=== PATIENT | female | born 1960 | race Caucasian/White ===

== ENCOUNTER 2017-01-01 21:34 | Emergency (ER) | payer OTHER ==
[~2017-01-01] VITALS: Ht 165.1 cm; Wt 50.5 kg
[~2017-01-01 21:34] MED LIST: ADVAIR 250/501 DISK IH; ALPRAZOLAM1 MG PO; AZITHROMYCIN250 MG PO; BACLOFEN10 MG PO; CLEOCIN300 MG PO; DIVALPROEX SOD500 MG PO; DULERA 200 MCG/13 GM IH; EPIPEN ADU0.3 MG/0.3 IM; EYE DROP TEARS15 ML BOTH EYES; FLEXERIL10 MG PO; FUROSEMIDE20 MG PO; KEPPRA500 MG PO; LAMICTAL25 MG PO; LAMOTRIGINE100 MG PO; LEVETIRACETAM500 MG PO; MAXALT10 MG PO; MEGACE 40 MG40 MG/ML PO; MEGESTROL800 MG/20 PO; MELOXICAM15 MG PO; MILLIPRED5 MG PO; MOBIC7.5 MG PO; MOTRIN600 MG PO; NAPROSYN500 MG PO; NITROSTAT0.4 MG SL; OMEPRAZOLE20 MG PO; OXAYDO5 MG PO; OXYCODONE HCL5 MG PO; PREDNISONE10 M1 PO; PREDNISONE20 MG PO; PRILOSEC20 MG PO; PROAIR HFA8.5 GM IH; PROMETHAZINE HC25 M1 PO; PROMETHAZINE12.5 M1 PO; PROVENTIL,2.5 MG/3 M IH; REGLAN10 MG PO; ROXICODONE5 MG PO; TIZANIDINE HCL2 M1 PO; VITAMIN D400 UNI1 PO; XANAX0.5 MG PO; ZITHROMAX Z-PA250 MG PO; ZITHROMAX250 MG PO; ZOLPIDEM TARTRA10 MG PO
[2017-01-01 21:55] LABS: HEMATOCRIT 41.1 % (36.0-46.0); MCH 30.6 PG (29.0-34.0); MCHC 33.1 G/DL (30.0-36.0); MCV 92.4 FL (83-99); MEAN PLAT.VOLUME 11.6 uM^3 (9.5-12.4); PLATELET COUNT 181 K/uL (156-360); RBC DIS.WIDTH-CV 13.2 % (11.8-14.6); RBC DIS.WIDTH-SD 45.1 % (39-53); RED BLOOD COUNT 4.45 M/uL (3.80-5.20); WHITE BLOOD COUNT 6.1 K/uL (4.1-10.2)
[2017-01-01 22:30] LABS: CHLORIDE 107 mEq/L (99-109); POTASSIUM 3.9 mEq/L (3.7-5.4); SODIUM 141 mEq/L (136-147)
[2017-01-01 22:32] LABS: GLUCOSE 90 mg/dL (70-99)
[2017-01-01 22:33] LABS: ANION GAP 8 MEQ/L (2-14)
[2017-01-01 22:36] LABS: GFR ESTIMATE (CALCULATED) > 59 mL/min/; UREA NITROGEN (BUN) 9 mg/dL (9-23)
[2017-01-01 22:39] LABS: TROP-I INTERPRETATION NEGATIVE; TROPONIN-I < 0.01 ng/mL (0.0-0.30)
[2017-01-02] MEDS ORDERED: PROAIR HFA8.5 GM IH (01:01)
[2017-01-02] MEDS ORDERED: HYCODAN SYRUP480 ML PO (01:01)
[2017-01-02] MEDS ORDERED: PREDNISONE20 MG PO (01:01)
[2017-01-02 01:48] VITALS: BP 131/63
== END 2017-01-02 01:48 | disposition home or self-care (01) ==
LOC: EME 21:34
DX: J44.0 Chronic obstructive pulmonary disease with (acute) lower respiratory infection (principal); J20.9 Acute bronchitis, unspecified; R11.10 Vomiting, unspecified; J06.9 Acute upper respiratory infection, unspecified; S29.011A Strain of muscle and tendon of front wall of thorax, initial encounter; I25.2 Old myocardial infarction; J45.909 Unspecified asthma, uncomplicated; K21.9 Gastro-esophageal reflux disease without esophagitis; F17.200 Nicotine dependence, unspecified, uncomplicated; Z85.028 Personal history of other malignant neoplasm of stomach
CPT/HCPCS: 71020; 80048; 84484; 85027; 87651 90; 93005; 94640; 99281; 99284; J7512

== ENCOUNTER 2017-02-27 21:34 | Emergency (ER) | payer OTHER ==
[~2017-02-27] VITALS: Ht 165.1 cm; Wt 51.8 kg
[~2017-02-27 21:34] MED LIST changes: +HYCODAN SYRUP480 ML PO
[2017-02-27 23:13] LABS: HEMATOCRIT 43.1 % (36.0-46.0); MCH 30.4 PG (29.0-34.0); MCHC 31.8 G/DL (30.0-36.0); MCV 95.8 FL (83-99); MEAN PLAT.VOLUME 11.8 uM^3 (9.5-12.4); PLATELET COUNT 218 K/uL (156-360); RBC DIS.WIDTH-CV 13.7 % (11.8-14.6); RBC DIS.WIDTH-SD 48.7 % (39-53); WHITE BLOOD COUNT 7.2 K/uL (4.1-10.2)
[2017-02-27 23:25] LABS: CHLORIDE 112 mEq/L (99-109); POTASSIUM 3.6 mEq/L (3.7-5.4); SODIUM 141 mEq/L (136-147)
[2017-02-27 23:26] LABS: GLUCOSE 89 mg/dL (70-99)
[2017-02-27 23:28] LABS: ANION GAP 9 MEQ/L (2-14)
[2017-02-27 23:30] LABS: GFR ESTIMATE (CALCULATED) > 59 mL/min/
[2017-02-27 23:31] LABS: UREA NITROGEN (BUN) 9 mg/dL (9-23)
[2017-02-27 23:39] LABS: TROP-I INTERPRETATION NEGATIVE; TROPONIN-I < 0.01 ng/mL (0.0-0.30)
[2017-02-28] MEDS ORDERED: NAPROSYN500 MG PO (00:15)
[2017-02-28 00:19] VITALS: BP 130/66
== END 2017-02-28 00:25 | disposition home or self-care (01) ==
LOC: EME 21:34
PROVIDERS: Emergency Medicine
DX: M54.42 Lumbago with sciatica, left side (principal); R60.0 Localized edema; J44.9 Chronic obstructive pulmonary disease, unspecified; J45.909 Unspecified asthma, uncomplicated; Z90.710 Acquired absence of both cervix and uterus; Z85.028 Personal history of other malignant neoplasm of stomach; F17.200 Nicotine dependence, unspecified, uncomplicated
CPT/HCPCS: 80048; 84484; 85027; 93971; 99281; 99284

== ENCOUNTER 2017-06-17 19:33 | Observation (INO) | payer OTHER ==
[~2017-06-17] VITALS: Ht 162.6 cm; Wt 49.6 kg
[2017-06-17 20:07] LABS: MCH 30.1 PG (29.0-34.0); MCHC 33.1 G/DL (30.0-36.0); MCV 90.9 FL (83-99); MEAN PLAT.VOLUME 11.5 uM^3 (9.5-12.4); PLATELET COUNT 283 K/uL (156-360); RBC DIS.WIDTH-CV 12.8 % (11.8-14.6); RBC DIS.WIDTH-SD 42.5 % (39-53); RED BLOOD COUNT 4.95 M/uL (3.80-5.20); WHITE BLOOD COUNT 8.8 K/uL (4.1-10.2)
[2017-06-17 20:16] LABS: CHLORIDE 102 mEq/L (99-109); POTASSIUM 3.9 mEq/L (3.7-5.4); SODIUM 139 mEq/L (136-147)
[2017-06-17 20:17] LABS: GLUCOSE 121 mg/dL (70-99)
[2017-06-17 20:19] LABS: ANION GAP 9 MEQ/L (2-14)
[2017-06-17 20:21] LABS: GFR ESTIMATE (CALCULATED) > 59 mL/min/
[2017-06-17 20:22] LABS: UREA NITROGEN (BUN) 11 mg/dL (9-23)
[2017-06-17 20:27] LABS: TROP-I INTERPRETATION NEGATIVE; TROPONIN-I < 0.01 ng/mL (0.0-0.30)
[2017-06-17 21:30] LABS: D-DIMER ELISA < 150.00 ng/mLDDU (<230)
[2017-06-18] MEDS ORDERED: VENTOLIN HFA18 GM IH (01:04)
[2017-06-18] MEDS ORDERED: OXYCODONE HCL15 MG PO (01:19)
[2017-06-18] MEDS ORDERED: MARIJUANA PO (01:21)
[2017-06-18 03:35] VITALS: BP 120/57
[2017-06-18 05:10] LABS: TROP-I INTERPRETATION NEGATIVE; TROPONIN-I < 0.01 ng/mL (0.0-0.30)
[2017-06-18 07:17] VITALS: BP 109/65
[2017-06-18 09:32] LABS: TROP-I INTERPRETATION NEGATIVE; TROPONIN-I < 0.01 ng/mL (0.0-0.30)
[2017-06-18 11:53] VITALS: BP 117/74
[2017-06-18] MEDS ORDERED: NICOTINE PATCH1 EAC2 TD (11:57)
== END 2017-06-18 13:53 | disposition home or self-care (01) ==
LOC: EME 19:33 → EDOF 06-18 01:44 → ENRESERV 06-18 01:46 → 5WEST 06-18 03:31
PROVIDERS: Emergency Medicine; Hospitalist
DX: R07.9 Chest pain, unspecified (principal); J44.9 Chronic obstructive pulmonary disease, unspecified; M54.9 Dorsalgia, unspecified; G89.4 Chronic pain syndrome; I25.2 Old myocardial infarction; F41.9 Anxiety disorder, unspecified; Z79.891 Long term (current) use of opiate analgesic; F12.90 Cannabis use, unspecified, uncomplicated; F17.200 Nicotine dependence, unspecified, uncomplicated; Z88.0 Allergy status to penicillin; Z91.030 Bee allergy status; Z88.8 Allergy status to other drugs, medicaments and biological substances; Z91.040 Latex allergy status
CPT/HCPCS: 71020; 80048; 84484; 85027; 85379; 93005; 93306; 99281; 99285; G0378; J2765

== ENCOUNTER 2017-07-17 05:07 | Emergency (ER) | payer OTHER ==
[~2017-07-17] VITALS: Ht 165.1 cm; Wt 48.1 kg
[~2017-07-17 05:07] MED LIST changes: +MARIJUANA PO; +NICOTINE PATCH1 EAC2 TD; +OXYCODONE HCL15 MG PO; +VENTOLIN HFA18 GM IH
[2017-07-17 05:39] LABS: EOSINOPHIL (%) 0.4 % (0-5); EOSINOPHIL COUNT 0.1 K/uL (0-0.3); HEMATOCRIT 41.7 % (36.0-46.0); IMMATURE GRANULOCYTE (%) 0.2 % (0.0-0.7); INSTRUMENT ABS NEUTROPHIL CT 8.7 K/uL; LYMPHOCYTE COUNT 1.7 K/uL (1.0-2.8); MCH 30.8 PG (29.0-34.0); MCHC 33.8 G/DL (30.0-36.0); MEAN PLAT.VOLUME 11.1 uM^3 (9.5-12.4); NEUTROPHIL (%) 75.6 % (45-76); NEUTROPHIL COUNT 8.7 K/uL (1.8-6.4); PLATELET COUNT 275 K/uL (156-360); RBC DIS.WIDTH-CV 12.6 % (11.8-14.6); RBC DIS.WIDTH-SD 41.8 % (39-53); RED BLOOD COUNT 4.58 M/uL (3.80-5.20); WHITE BLOOD COUNT 11.5 K/uL (4.1-10.2)
[2017-07-17 05:47] LABS: CHLORIDE 105 mEq/L (99-109); POTASSIUM 3.9 mEq/L (3.7-5.4); SODIUM 140 mEq/L (136-147)
[2017-07-17 05:49] LABS: GLUCOSE 102 mg/dL (70-99)
[2017-07-17 05:50] LABS: ANION GAP 10 MEQ/L (2-14)
[2017-07-17 05:51] LABS: TOTAL BILIRUBIN 0.2 mg/dL (0.0-1.0)
[2017-07-17 05:53] LABS: ALKALINE PHOSPHATASE 94 IU/L (3-129); GFR ESTIMATE (CALCULATED) > 59 mL/min/
[2017-07-17 05:54] LABS: UREA NITROGEN (BUN) 8 mg/dL (9-23)
[2017-07-17 05:56] LABS: LIPASE 21 U/L (1.0-51.0)
[2017-07-17 06:00] LABS: TROP-I INTERPRETATION NEGATIVE; TROPONIN-I < 0.01 ng/mL (0.0-0.30)
[2017-07-17] MEDS ORDERED: ZITHROMAX250 MG PO (07:03)
[2017-07-17] MEDS ORDERED: LIDOCAINE700 MG TP (07:07)
[2017-07-17 09:22] LABS: TROP-I INTERPRETATION NEGATIVE; TROPONIN-I < 0.01 ng/mL (0.0-0.30)
[2017-07-17 10:29] VITALS: BP 127/67
== END 2017-07-17 10:31 | disposition home or self-care (01) ==
LOC: EME 05:07
PROVIDERS: Emergency Medicine
DX: R07.89 Other chest pain (principal); J44.9 Chronic obstructive pulmonary disease, unspecified; F17.200 Nicotine dependence, unspecified, uncomplicated; F12.90 Cannabis use, unspecified, uncomplicated; I25.2 Old myocardial infarction; K21.9 Gastro-esophageal reflux disease without esophagitis; Z85.028 Personal history of other malignant neoplasm of stomach; R56.9 Unspecified convulsions; Z86.73 Personal history of transient ischemic attack (TIA), and cerebral infarction without residual deficits; F41.9 Anxiety disorder, unspecified; Z91.040 Latex allergy status; Z88.1 Allergy status to other antibiotic agents; Z88.5 Allergy status to narcotic agent; Z88.6 Allergy status to analgesic agent; Z88.0 Allergy status to penicillin; Z87.19 Personal history of other diseases of the digestive system; Z87.442 Personal history of urinary calculi
CPT/HCPCS: 71020; 80053; 81003; 83690; 84484; 85025; 85379; 93005; 99281; 99285; J1100; J1885; J7030

== ENCOUNTER → 2017-08-20 | Outpatient (CLI) | payer OTHER ==
[~2017-08-20] MED LIST changes: +AMBIEN10 MG PO; +BREO ELLIPTA 21 EACH IH; +LAMOTRIGINE200 MG PO; +LIDOCAINE700 MG TP; +XANAX0.25 MG PO
== END | disposition home or self-care (01) ==
LOC: OPR 08:35 → EDSTATUS 09:00 → OPR 09:00
DX: R91.1 Solitary pulmonary nodule (principal); E27.9 Disorder of adrenal gland, unspecified; Z53.09 Procedure and treatment not carried out because of other contraindication
CPT/HCPCS: 77012

== ENCOUNTER 2017-08-30 16:46 | Inpatient (IN) | payer OTHER ==
[~2017-08-30] VITALS: Ht 165.1 cm; Wt 46.3 kg
[2017-08-30 17:49] LABS: HEMATOCRIT 43.7 % (36.0-46.0); MCH 30.6 PG (29.0-34.0); MCHC 34.3 G/DL (30.0-36.0); MCV 89.2 FL (83-99); RBC DIS.WIDTH-CV 13.2 % (11.8-14.6); RBC DIS.WIDTH-SD 43.2 % (39-53); WHITE BLOOD COUNT 8.6 K/uL (4.1-10.2)
[2017-08-30 17:51] LABS: PLATELET COUNT 189 K/uL (156-360)
[2017-08-30 17:57] LABS: ALBUMIN 4.1 g/dL (3.2-4.8); CHLORIDE 99 mEq/L (99-109); POTASSIUM 3.6 mEq/L (3.7-5.4)
[2017-08-30 17:58] LABS: SODIUM 137 mEq/L (136-147)
[2017-08-30 17:59] LABS: CHLORIDE 99 mEq/L (99-109); POTASSIUM 3.6 mEq/L (3.7-5.4); SODIUM 139 mEq/L (136-147)
[2017-08-30 18:00] LABS: GLUCOSE 89 mg/dL (70-99)
[2017-08-30 18:01] LABS: GLUCOSE 89 mg/dL (70-99)
[2017-08-30 18:02] LABS: TOTAL BILIRUBIN 0.8 mg/dL (0.0-1.0)
[2017-08-30 18:03] LABS: ALKALINE PHOSPHATASE 85 IU/L (3-129); CREATININE 0.6 mg/dL (0.6-1.3); GFR ESTIMATE (CALCULATED) > 59 mL/min/
[2017-08-30 18:05] LABS: AST (GOT) 28 IU/L (2-34); CREATININE 0.6 mg/dL (0.6-1.3); GFR ESTIMATE (CALCULATED) > 59 mL/min/; UREA NITROGEN (BUN) 11 mg/dL (9-23)
[2017-08-30 18:06] LABS: ALT (GPT) 32 IU/L (3-49); UREA NITROGEN (BUN) 11 mg/dL (9-23)
[2017-08-30 18:14] LABS: QUANTITATIVE HCG < 4.0 MIU/ML
[2017-08-30 21:12] LABS: LIPASE 21 U/L (1.0-51.0)
[2017-08-30] MEDS ORDERED: OXYCODONE HCL20 M1 PO (23:42)
[2017-08-30] MEDS ORDERED: ALPRAZOLAM0.25 M2 PO (23:43)
[2017-08-30] MEDS ORDERED: RIZATRIPTAN10 M1 PO (23:44)
[2017-08-30] MEDS ORDERED: PROMETHAZINE HC25 M1 PO (23:45)
[2017-08-31 00:40] LABS: APPEARANCE SL.HAZY ((CLEAR)); BILIRUBIN NEGATIVE; BLOOD NEGATIVE; COLOR AMBER ((YELLOW)); GLUCOSE (STRIP) NEGATIVE; KETONES 20; LEUKOCYTES NEGATIVE; NITRITE NEGATIVE; PROTEIN (STRIP) 30; SPECIFIC GRAVITY 1.027 (1.000-1.030); UROBILINOGEN 0.2 MG/DL (0.2-1.0)
[2017-08-31 01:02] LABS: BACTERIA 1+ /HPF; EPITHELIAL CELLS RARE /HPF; MUCUS 4+ /LPF; UCUL ADDED? NO; WHITE BLOOD CELLS 0-5 /HPF (0-5)
[2017-08-31 03:45] VITALS: BP 123/60
[2017-08-31 08:19] VITALS: BP 102/51
[2017-08-31 11:39] VITALS: BP 105/58
[2017-08-31 15:41] VITALS: BP 99/50
[2017-08-31 19:00] VITALS: BP 109/67
[2017-09-01 00:39] VITALS: BP 112/53
[2017-09-01 06:18] LABS: CHLORIDE 104 MEQ/L (99-109); CREATININE 0.5 MG/DL (0.6-1.3); GFR ESTIMATE (CALCULATED) > 59 mL/min/; POTASSIUM 3.6 MEQ/L (3.7-5.4); SODIUM 138 MEQ/L (136-147); UREA NITROGEN (BUN) 10 mg/dL (9-23)
[2017-09-01 06:22] LABS: HEMATOCRIT 36.6 % (36.0-46.0); MCH 30.1 PG (29.0-34.0); MCHC 33.6 G/DL (30.0-36.0); MCV 89.7 FL (83-99); PLATELET COUNT 165 K/uL (156-360); RBC DIS.WIDTH-CV 13.1 % (11.8-14.6); RBC DIS.WIDTH-SD 43.1 % (39-53); RED BLOOD COUNT 4.08 M/uL (3.80-5.20); WHITE BLOOD COUNT 3.6 K/uL (4.1-10.2)
[2017-09-01 06:23] LABS: HEMOGLOBIN 12.3 G/DL (11.9-15.5)
[2017-09-01 06:32] LABS: GLUCOSE 189 mg/dL (70-99)
[2017-09-01 06:46] LABS: BASOPHIL (%) 0 % (0-1); EOSINOPHIL (%) 0 % (0-5); IMMATURE GRANULOCYTE (%) 0.3 % (0.0-0.7); LYMPHOCYTE (%) 27.3 % (15-42); MONOCYTE (%) 6.1 % (3-12); MONOCYTE COUNT 0.2 K/uL (0-0.8); NEUTROPHIL (%) 66.3 % (45-76); NEUTROPHIL COUNT 2.4 K/uL (1.8-6.4)
[2017-09-01 07:21] VITALS: BP 90/57
[2017-09-01 11:25] VITALS: BP 100/57
[2017-09-01 15:45] VITALS: BP 100/55
[2017-09-01 19:00] VITALS: BP 101/58
[2017-09-01 23:25] VITALS: BP 105/56
[2017-09-02 07:48] VITALS: BP 134/67
[2017-09-02 07:55] VITALS: BP 106/55
[2017-09-02 11:45] VITALS: BP 110/59
[2017-09-02 15:18] VITALS: BP 119/57
[2017-09-02 19:30] VITALS: BP 120/57
[2017-09-02 23:25] VITALS: BP 93/50
[2017-09-03 05:54] LABS: BASOPHIL (%) 0.1 % (0-1); EOSINOPHIL (%) 0 % (0-5); HEMATOCRIT 36.9 % (36.0-46.0); HEMOGLOBIN 11.8 G/DL (11.9-15.5); LYMPHOCYTE (%) 8.4 % (15-42); LYMPHOCYTE COUNT 0.6 K/uL (1.0-2.8); MCH 29.6 PG (29.0-34.0); MCV 92.7 FL (83-99); MONOCYTE (%) 4.8 % (3-12); MONOCYTE COUNT 0.3 K/uL (0-0.8); NEUTROPHIL (%) 85.7 % (45-76); NEUTROPHIL COUNT 5.8 K/uL (1.8-6.4); RBC DIS.WIDTH-CV 13.3 % (11.8-14.6); RBC DIS.WIDTH-SD 45.8 % (39-53); RED BLOOD COUNT 3.98 M/uL (3.80-5.20); WHITE BLOOD COUNT 6.8 K/uL (4.1-10.2)
[2017-09-03 06:01] LABS: PLATELET COUNT 221 K/uL (156-360)
[2017-09-03 06:08] LABS: CHLORIDE 107 MEQ/L (99-109); POTASSIUM 3.9 MEQ/L (3.7-5.4); SODIUM 141 MEQ/L (136-147)
[2017-09-03 06:14] LABS: CREATININE 0.4 MG/DL (0.6-1.3); GFR ESTIMATE (CALCULATED) > 59 mL/min/; UREA NITROGEN (BUN) 12 mg/dL (9-23)
[2017-09-03 06:15] LABS: GLUCOSE 116 mg/dL (70-99)
[2017-09-03 09:30] VITALS: BP 121/59
[2017-09-03 11:30] VITALS: BP 103/57
[2017-09-03] MEDS ORDERED: PREDNISONE10 MG PO (13:19)
[2017-09-03 16:45] VITALS: BP 107/51
[2017-09-03 19:00] VITALS: BP 118/58
[2017-09-04 00:18] VITALS: BP 120/59
[2017-09-04 03:39] VITALS: BP 115/54
[2017-09-04 07:30] VITALS: BP 118/59
[2017-09-04 11:28] VITALS: BP 111/53
[2017-09-04 16:13] VITALS: BP 117/72
[2017-09-04 20:00] VITALS: BP 122/80
[2017-09-05 03:35] VITALS: BP 115/56
[2017-09-05 08:15] VITALS: BP 126/80
== END 2017-09-05 12:46 | disposition home or self-care (01) | DRG 190 ==
LOC: EME 16:46 → EDOF 08-31 02:09 → ENRESERV 08-31 02:38 → 5WEST 08-31 03:14 → ENPENDDIS 09-03 → 5WEST 09-05 12:46
PROVIDERS: Hospitalist; Nurse Practitioner Family
DX: J44.1 Chronic obstructive pulmonary disease with (acute) exacerbation (principal); J10.08 Influenza due to other identified influenza virus with other specified pneumonia; J18.0 Bronchopneumonia, unspecified organism; J44.0 Chronic obstructive pulmonary disease with (acute) lower respiratory infection; R64 Cachexia; J10.2 Influenza due to other identified influenza virus with gastrointestinal manifestations; A08.4 Viral intestinal infection, unspecified; R00.1 Bradycardia, unspecified; I25.10 Atherosclerotic heart disease of native coronary artery without angina pectoris; I10 Essential (primary) hypertension; K21.9 Gastro-esophageal reflux disease without esophagitis; F12.90 Cannabis use, unspecified, uncomplicated; F41.9 Anxiety disorder, unspecified; G89.4 Chronic pain syndrome; M54.9 Dorsalgia, unspecified; G40.909 Epilepsy, unspecified, not intractable, without status epilepticus; G43.909 Migraine, unspecified, not intractable, without status migrainosus; F10.21 Alcohol dependence, in remission; F14.11 Cocaine abuse, in remission; F17.200 Nicotine dependence, unspecified, uncomplicated; Z99.81 Dependence on supplemental oxygen; I25.2 Old myocardial infarction; Z85.028 Personal history of other malignant neoplasm of stomach; Z86.73 Personal history of transient ischemic attack (TIA), and cerebral infarction without residual deficits; Z87.442 Personal history of urinary calculi
CPT/HCPCS: 71046; 71250; 74176; 80048; 80053; 81003; 83690; 84702; 85025; 85027; 87040; 87070; 87205; 87493; 87502; 93005; 94640; 94640 76; 94799; 99281; 99285; G0378; J0456; J0696; J1644; J1956; J2550; J2930; J7030; J7512; Q0169

== ENCOUNTER 2017-09-27 17:03 | Emergency (ER) | payer OTHER ==
[~2017-09-27] VITALS: Ht 165.1 cm; Wt 50.3 kg
[~2017-09-27 17:03] MED LIST changes: +ALPRAZOLAM0.25 M2 PO; +OXYCODONE HCL20 M1 PO; +PREDNISONE10 MG PO; +RIZATRIPTAN10 M1 PO
[2017-09-27 17:39] LABS: HEMOGLOBIN 14.7 G/DL (11.9-15.5); MCH 30.8 PG (29.0-34.0); MCHC 34.2 G/DL (30.0-36.0); MCV 90.1 FL (83-99); PLATELET COUNT 279 K/uL (156-360); RBC DIS.WIDTH-CV 13.8 % (11.8-14.6); RBC DIS.WIDTH-SD 45.9 % (39-53); RED BLOOD COUNT 4.77 M/uL (3.80-5.20); WHITE BLOOD COUNT 14.8 K/uL (4.1-10.2)
[2017-09-27 17:50] LABS: ALBUMIN 4.1 g/dL (3.2-4.8); CHLORIDE 103 mEq/L (99-109); POTASSIUM 3.8 mEq/L (3.7-5.4); SODIUM 138 mEq/L (136-147)
[2017-09-27 17:53] LABS: GLUCOSE 91 mg/dL (70-99); TOTAL PROTEIN 6.9 g/dL (6.4-8.3)
[2017-09-27 17:55] LABS: TOTAL BILIRUBIN 0.8 mg/dL (0.0-1.0)
[2017-09-27 17:56] LABS: ALKALINE PHOSPHATASE 87 IU/L (3-129); CREATININE 0.8 mg/dL (0.6-1.3); GFR ESTIMATE (CALCULATED) > 59 mL/min/
[2017-09-27 17:57] LABS: UREA NITROGEN (BUN) 9 mg/dL (9-23)
[2017-09-27 17:58] LABS: AST (GOT) 20 IU/L (2-34)
[2017-09-27 18:02] LABS: ALT (GPT) 18 IU/L (3-49)
[2017-09-27 18:05] LABS: QUANTITATIVE HCG < 4.0 MIU/ML
[2017-09-27] MEDS ORDERED: PROMETHAZINE HC25 M1 PO (19:09)
[2017-09-27 21:27] VITALS: BP 93/75
== END 2017-09-27 21:41 | disposition home or self-care (01) ==
LOC: EME 17:03
DX: R11.2 Nausea with vomiting, unspecified (principal); S20.212A Contusion of left front wall of thorax, initial encounter; X58.XXXA Exposure to other specified factors, initial encounter; R42 Dizziness and giddiness; R91.8 Other nonspecific abnormal finding of lung field; J44.9 Chronic obstructive pulmonary disease, unspecified; I25.2 Old myocardial infarction; Z86.73 Personal history of transient ischemic attack (TIA), and cerebral infarction without residual deficits; Z87.442 Personal history of urinary calculi; Z85.028 Personal history of other malignant neoplasm of stomach; Z90.710 Acquired absence of both cervix and uterus; F17.200 Nicotine dependence, unspecified, uncomplicated
CPT/HCPCS: 71046; 80053; 81003; 84702; 85027; 99281; 99284; J7030; Q0169

== ENCOUNTER 2017-10-10 12:02 | Inpatient (IN) | payer OTHER ==
[~2017-10-10] VITALS: Ht 165.1 cm; Wt 47.8 kg
[2017-10-10 12:48] LABS: HEMATOCRIT 43.2 % (36.0-46.0); HEMOGLOBIN 14.8 G/DL (11.9-15.5); MCH 30.6 PG (29.0-34.0); MCHC 34.3 G/DL (30.0-36.0); MCV 89.3 FL (83-99); PLATELET COUNT 309 K/uL (156-360); RBC DIS.WIDTH-CV 13.4 % (11.8-14.6); RED BLOOD COUNT 4.84 M/uL (3.80-5.20); WHITE BLOOD COUNT 10.9 K/uL (4.1-10.2)
[2017-10-10 13:00] LABS: CHLORIDE 102 mEq/L (99-109); POTASSIUM 3.4 mEq/L (3.7-5.4); SODIUM 139 mEq/L (136-147)
[2017-10-10 13:02] LABS: GLUCOSE 108 mg/dL (70-99)
[2017-10-10 13:06] LABS: CREATININE 0.7 mg/dL (0.6-1.3); GFR ESTIMATE (CALCULATED) > 59 mL/min/; UREA NITROGEN (BUN) 10 mg/dL (9-23)
[2017-10-10 13:56] LABS: TROP-I INTERPRETATION NEGATIVE; TROPONIN-I < 0.01 ng/mL (0.0-0.30)
[2017-10-10 14:02] LABS: D-DIMER ELISA < 150.00 ng/mLDDU (<230)
[2017-10-10] MEDS ORDERED: LIORESAL10 MG PO (16:58)
[2017-10-10] MEDS ORDERED: INCRUSE ELLI62.5 MCG IH (16:59)
[2017-10-10] MEDS ORDERED: BIAXIN500 MG PO (16:59)
[2017-10-10] MEDS ORDERED: DUONEB 2.5-0.5 M3 ML AEROSOL (17:01)
[2017-10-10 19:38] VITALS: BP 134/71
[2017-10-11 00:52] VITALS: BP 105/50
[2017-10-11 04:38] VITALS: BP 107/64
[2017-10-11 06:35] LABS: HEMATOCRIT 41.4 % (36.0-46.0); HEMOGLOBIN 13.4 G/DL (11.9-15.5); MCH 29.8 PG (29.0-34.0); MCHC 32.4 G/DL (30.0-36.0); PLATELET COUNT 263 K/uL (156-360); RBC DIS.WIDTH-CV 13.5 % (11.8-14.6); RBC DIS.WIDTH-SD 45.9 % (39-53); WHITE BLOOD COUNT 9.8 K/uL (4.1-10.2)
[2017-10-11 07:02] LABS: CHLORIDE 101 MEQ/L (99-109); CREATININE 0.6 MG/DL (0.6-1.3); GFR ESTIMATE (CALCULATED) > 59 mL/min/; GLUCOSE 117 mg/dL (70-99); SODIUM 139 MEQ/L (136-147); UREA NITROGEN (BUN) 11 mg/dL (9-23)
[2017-10-11 07:03] LABS: POTASSIUM 4.6 MEQ/L (3.7-5.4)
[2017-10-11 07:50] VITALS: BP 108/68
[2017-10-11 11:00] VITALS: BP 117/64
[2017-10-11 16:20] VITALS: BP 111/56
[2017-10-11 16:55] LABS: APPEARANCE CLEAR ((CLEAR)); BILIRUBIN NEGATIVE; BLOOD NEGATIVE; COLOR YELLOW ((YELLOW)); GLUCOSE (STRIP) NEGATIVE; KETONES NEGATIVE; LEUKOCYTES NEGATIVE; NITRITE NEGATIVE; PROTEIN (STRIP) NEGATIVE; UROBILINOGEN 0.2 MG/DL (0.2-1.0)
[2017-10-11 20:29] VITALS: BP 113/55
[2017-10-12 00:12] VITALS: BP 100/53
[2017-10-12 04:28] VITALS: BP 112/63
[2017-10-12 06:21] LABS: BASOPHIL (%) 0.1 % (0-1); EOSINOPHIL (%) 0 % (0-5); HEMATOCRIT 41.1 % (36.0-46.0); HEMOGLOBIN 13.3 G/DL (11.9-15.5); IMMATURE GRANULOCYTE (%) 0.6 % (0.0-0.7); LYMPHOCYTE (%) 7.2 % (15-42); LYMPHOCYTE COUNT 0.9 K/uL (1.0-2.8); MCH 29.6 PG (29.0-34.0); MCHC 32.4 G/DL (30.0-36.0); MCV 91.5 FL (83-99); MONOCYTE (%) 3.9 % (3-12); MONOCYTE COUNT 0.5 K/uL (0-0.8); NEUTROPHIL (%) 88.2 % (45-76); NEUTROPHIL COUNT 11.2 K/uL (1.8-6.4); PLATELET COUNT 271 K/uL (156-360); RBC DIS.WIDTH-CV 13.5 % (11.8-14.6); RBC DIS.WIDTH-SD 45.9 % (39-53); RED BLOOD COUNT 4.49 M/uL (3.80-5.20); WHITE BLOOD COUNT 12.7 K/uL (4.1-10.2)
[2017-10-12 06:46] LABS: CHLORIDE 107 MEQ/L (99-109); CREATININE 0.7 MG/DL (0.6-1.3); GFR ESTIMATE (CALCULATED) > 59 mL/min/; GLUCOSE 141 mg/dL (70-99); POTASSIUM 4.7 MEQ/L (3.7-5.4); SODIUM 142 MEQ/L (136-147); UREA NITROGEN (BUN) 17 mg/dL (9-23)
[2017-10-12 07:17] VITALS: BP 108/57
[2017-10-12 15:26] VITALS: BP 120/68
[2017-10-12 20:17] VITALS: BP 112/56
[2017-10-12 23:46] VITALS: BP 133/60
[2017-10-13 04:13] VITALS: BP 118/58
[2017-10-13 07:42] VITALS: BP 125/62
[2017-10-13 11:30] VITALS: BP 111/53
[2017-10-13 13:07] LABS: HEMOGLOBIN 13.2 G/DL (11.9-15.5); MCH 29.3 PG (29.0-34.0); MCHC 32.2 G/DL (30.0-36.0); MCV 90.9 FL (83-99); PLATELET COUNT 340 K/uL (156-360); RBC DIS.WIDTH-CV 13.6 % (11.8-14.6); RBC DIS.WIDTH-SD 46.1 % (39-53); RED BLOOD COUNT 4.51 M/uL (3.80-5.20); WHITE BLOOD COUNT 13.8 K/uL (4.1-10.2)
[2017-10-13 15:37] VITALS: BP 102/59
[2017-10-13 19:25] VITALS: BP 111/61
[2017-10-13 19:52] LABS: C DIFF TOXIN NEGATIVE (NEGATIVE)
[2017-10-13 22:30] VITALS: BP 117/58
[2017-10-14 03:38] VITALS: BP 118/70
[2017-10-14 07:58] VITALS: BP 112/65
[2017-10-14] MEDS ORDERED: VENTOLIN HFA18 GM IH (11:20)
[2017-10-14] MEDS ORDERED: PREDNISONE10 MG PO (11:21)
== END 2017-10-14 12:09 | disposition home or self-care (01) | DRG 192 ==
LOC: EME 12:02 → EDOF 16:40 → 2EAST 16:40 → ENRESERV 16:43 → 2EAST 19:36
PROVIDERS: Internal Medicine; Physician Assistant; Physician Assistant Medical; Student in an Organized Health Care Education/Training Program
DX: J44.1 Chronic obstructive pulmonary disease with (acute) exacerbation (principal); J44.0 Chronic obstructive pulmonary disease with (acute) lower respiratory infection; R09.02 Hypoxemia; Z99.81 Dependence on supplemental oxygen; F41.9 Anxiety disorder, unspecified; J20.9 Acute bronchitis, unspecified; F32.9 Major depressive disorder, single episode, unspecified; F10.21 Alcohol dependence, in remission; I25.2 Old myocardial infarction; F12.90 Cannabis use, unspecified, uncomplicated; F17.200 Nicotine dependence, unspecified, uncomplicated; I10 Essential (primary) hypertension; G89.4 Chronic pain syndrome; R00.1 Bradycardia, unspecified; G43.909 Migraine, unspecified, not intractable, without status migrainosus; K21.9 Gastro-esophageal reflux disease without esophagitis; Z86.73 Personal history of transient ischemic attack (TIA), and cerebral infarction without residual deficits; Z87.01 Personal history of pneumonia (recurrent); H40.9 Unspecified glaucoma; K64.9 Unspecified hemorrhoids; Z90.710 Acquired absence of both cervix and uterus
CPT/HCPCS: 71046; 80048; 81003; 84484; 85025; 85027; 85379; 87070; 87081; 87205; 87449; 87493; 87502; 93005; 94640; 94640 76; 94760; 94799; 99202; 99281; 99285; J0696; J1650; J2930